=== PATIENT | female | born 1985 ===

== ENCOUNTER 2019-03-16 06:20 | Inpatient (IN) ==
[2019-03-16] MEDS ORDERED: LACTATED RINGERS 250 ML IV ONE (06:33)
[2019-03-16] MEDS ORDERED: ONDANSETRON 4 MG/2 ML VIAL IV PRN ×2 (06:33→10:48)
[2019-03-16] MEDS ORDERED: LACTATED RINGERS 1,000 ML IV ONE (06:35)
[2019-03-16] MEDS ORDERED: CITRIC ACID/SODIUM CITRATE 30 ML UDCUP PO ONE (06:35)
[2019-03-16] MEDS ORDERED: FAMOTIDINE 20 MG/2 ML VIAL IV ONE (06:35)
[2019-03-16] MEDS ORDERED: LACTATED RINGERS 1,000 ML IV SCH ×3 (07:00→11:00)
[2019-03-16 07:16] LABS: Basophils % 0.2 % (0.0-0.8); Eosinophils % 0.5 % (0.00-10.9); Hematocrit 33.4 VOL% (35.7-47.0); Hemoglobin 10.2 GM/DL (12.0-16.0); Immature Granulocytes % 2.4 %; Immature Granulocytes Absolute 0.19 #; Lymphocytes % 24.3 % (21.3-54.2); Mean Corpuscular HGB Conc 30.5 GM/DL (32-36); Mean Corpuscular Volume 85.6 FL (87-102); Mean Platelet Volume 9.1 FL (9.6-12.0); Monocytes % 6.6 % (1.7-12.7); Platelet Count 300 T/CUMM (130-400); Red Cell Distribution Width 15.2 % (9.3-17.3); White Blood Count 8.1 T/CUMM (4-12)
[2019-03-16] MEDS ORDERED: OXYTOCIN/LR 30 UNIT/1,000 ML BAG IV ONE (07:16)
[2019-03-16] MEDS ORDERED: OXYTOCIN 10 UNIT/ML VIAL IM ONE (07:16)
[2019-03-16 07:43] LABS: Alanine Aminotransferase 21 U/L (13-56); Albumin 2.4 G/DL (3.4-5.0); Alkaline Phosphatase 177 U/L (45-117); Aspartate Amino Transferase 26 U/L (0-37); Bilirubin,Total < 0.39 MG/DL (0.2-1.0); Blood Urea Nitrogen 8 MG/DL (7-18); Calcium 8.2 MG/DL (8.5-10.1); Glucose 109 MG/DL (74-106); Osmolality,Calculated 277.4 MOS/KG (273-304); Total Protein 6.8 G/DL (6.4-8.3)
[2019-03-16] MEDS ORDERED: ceFAZolin 3,000 MG in SYRINGE 1 EACH IV ONE (08:00)
[2019-03-16] MEDS ORDERED: METHYLERGONOVINE 0.2 MG/1 ML AMP ONE (08:39)
[2019-03-16] MEDS ORDERED: CARBOPROST TROMETHAMINE 250 MCG/ML AMP IM ONE (08:39)
[2019-03-16] MEDS ORDERED: miSOPROStol 200 MCG TABLET ONE (08:39)
[2019-03-16 10:31] LABS: Cord Arterial Blood HCO3 20.1 MMOL/L
[2019-03-16 10:34] LABS: Cord Venous Blood HCO3 20.8 MMOL/L; Cord Venous Blood PCO2 47.2 MMHG; Cord Venous Blood PO2 24.9
[2019-03-16] MEDS ORDERED: DEXTROSE 10% 250 ML BAG IV PRN (10:48)
[2019-03-16] MEDS ORDERED: ACETAMINOPHEN 325 MG TABLET PO PRN (10:48)
[2019-03-16] MEDS ORDERED: OXYTOCIN/LR 20 UNIT/1,000 ML BAG IV ONE (10:48)
[2019-03-16] MEDS ORDERED: GLUCAGON 1 MG VIAL IM PRN ×3 (10:48→23:32)
[2019-03-16] MEDS ORDERED: RHO(D) IMMUNE GLOBULIN 300 MCG SYRINGE IM ONE (11:00)
[2019-03-16] MEDS ORDERED: MORPHINE 10 MG/10 ML VIAL ONE (11:16)
[2019-03-16] MEDS ORDERED: PHENYLEPHRINE 1 MG/10 ML SYRINGE IV ONE (11:17)
[2019-03-16] MEDS ORDERED: DEXAMETHASONE 4 MG/1 ML VIAL ONE (11:18)
[2019-03-16] MEDS ORDERED: BUPIVACAINE SPINAL 0.75% 2 ML AMP SPINAL ONE (11:18)
[2019-03-16] MEDS ORDERED: BUPIVACAINE 0.5% 50 ML VIAL ONE (11:18)
[2019-03-16] MEDS ORDERED: ePHEDrine 50 MG/ML AMP ONE (11:18)
[2019-03-16] MEDS ORDERED: DEXTROSE 50% 25 GM/50 ML VIAL IV PRN ×2 (11:30→23:32)
[2019-03-16 11:39] LABS: Apearance,Urine CLEAR (Clear); Bilirubin,Urine Negative (Negative); Blood, Urine Negative (Negative); Glucose,Urine (UA) Negative (Negative); Ketones,Urine Negative (Negative); Mucus,Urine Moderate /LPF (Occasional); Nitrite,Urine Negative (Negative); Protein,Urine 30 MG/DL; RBC,Urine <1 /HPF (0-4); Squamous Epithelial Cell,Urine Occasional /HPF (0-10); Urine Color Yellow (Yellow); Urine Urobilinogen < 2.0 EU/DL (0.2-1.0); WBC,Urine <1 /HPF (0-6)
[2019-03-16] MEDS: HYDROmorphone 2 MG/1 ML VIAL IV PRN ×3 (12:05→13:44)
[2019-03-16] MEDS ORDERED: ceFAZolin 1,000 MG in SYRINGE 1 EACH IV SCH (16:00)
[2019-03-16] MEDS: ceFAZolin 1,000 MG in SYRINGE 1 EACH IV SCH (17:39)
[2019-03-16 18:51] LABS: Basophils % 0.2 % (0.0-0.8); Eosinophils % 0.3 % (0.00-10.9); Hematocrit 29.4 VOL% (35.7-47.0); Immature Granulocytes % 1.3 %; Immature Granulocytes Absolute 0.13 #; Lymphocytes # 1.7 10*3/uL (1.4-4.0); Lymphocytes % 17.4 % (21.3-54.2); Mean Corpuscular HGB Conc 30.6 GM/DL (32-36); Mean Corpuscular Volume 86.2 FL (87-102); Mean Platelet Volume 9.3 FL (9.6-12.0); Monocytes % 6.2 % (1.7-12.7); Neutrophils % 74.6 % (38.7-73.9); Platelet Count 260 T/CUMM (130-400); Red Blood Count 3.41 MC/CUMM (3.8-5.5); White Blood Count 9.7 T/CUMM (4-12)
[2019-03-16] MEDS: IBUPROFEN 800 MG TABLET PO PRN (21:10)
[2019-03-16] MEDS: DOCUSATE SODIUM 100 MG CAPSULE PO SCH (23:29)
[2019-03-16] MEDS: INSULIN REGULAR 100 UNIT/ML SUBCUT SCH (23:30)
[2019-03-17] MEDS: ceFAZolin 1,000 MG in SYRINGE 1 EACH IV SCH (02:30)
[2019-03-17 05:54] LABS: Basophils % 0.4 % (0.0-0.8); Eosinophils # 0.1 10*3/uL (0.0-0.87); Eosinophils % 0.6 % (0.00-10.9); Hematocrit 28.7 VOL% (35.7-47.0); Hemoglobin 8.8 GM/DL (12.0-16.0); Immature Granulocytes % 1.5 %; Immature Granulocytes Absolute 0.12 #; Lymphocytes # 1.7 10*3/uL (1.4-4.0); Lymphocytes % 20.5 % (21.3-54.2); Mean Corpuscular HGB Conc 30.7 GM/DL (32-36); Mean Corpuscular Volume 86.7 FL (87-102); Mean Platelet Volume 9.4 FL (9.6-12.0); Monocytes % 7.6 % (1.7-12.7); Neutrophils % 69.4 % (38.7-73.9); Platelet Count 260 T/CUMM (130-400); Red Blood Count 3.31 MC/CUMM (3.8-5.5); Red Cell Distribution Width 15.1 % (9.3-17.3); White Blood Count 8.3 T/CUMM (4-12)
[2019-03-17] MEDS ORDERED: MEPERIDINE 50 MG/1 ML VIAL IV PRN (09:07)
[2019-03-17] MEDS: IBUPROFEN 800 MG TABLET PO PRN ×2 (09:10→21:02)
[2019-03-17] MEDS: DOCUSATE SODIUM 100 MG CAPSULE PO SCH ×2 (09:36→20:43)
[2019-03-17] MEDS: MULTIVITAMIN (PRENATAL) TABLET PO SCH (09:36)
[2019-03-17] MEDS: INSULIN REGULAR 100 UNIT/ML SUBCUT SCH ×5 (10:35→20:41)
[2019-03-17] MEDS: oxyCODONE/ACETAMINOPHEN 5-325 MG TABLET PO PRN ×2 (14:57→21:02)
[2019-03-17] MEDS ORDERED: MAGNESIUM CITRATE 300 ML BOTTLE PO ONE (20:28)
[2019-03-17] MEDS: METOCLOPRAMIDE 10 MG TABLET PO SCH (20:43)
[2019-03-17] MEDS: MAGNESIUM HYDROXIDE SUSP 30 ML UDCUP PO PRN (20:43)
[2019-03-17] MEDS: SIMETHICONE CHEW 80 MG TABLET PO PRN (20:44)
[2019-03-18] MEDS: SIMETHICONE CHEW 80 MG TABLET PO PRN ×2 (04:17→20:02)
[2019-03-18] MEDS: METOCLOPRAMIDE 10 MG TABLET PO SCH ×2 (04:17→14:15)
[2019-03-18] MEDS: IBUPROFEN 800 MG TABLET PO PRN ×3 (04:17→23:50)
[2019-03-18] MEDS: oxyCODONE/ACETAMINOPHEN 5-325 MG TABLET PO PRN ×3 (05:21→20:00)
[2019-03-18] MEDS ORDERED: BISACODYL 10 MG SUPP RECTAL PRN (05:30)
[2019-03-18] MEDS: DOCUSATE SODIUM 100 MG CAPSULE PO SCH ×2 (10:09→20:02)
[2019-03-18] MEDS: MULTIVITAMIN (PRENATAL) TABLET PO SCH (10:09)
[2019-03-18] MEDS: FERROUS SULFATE 325 MG TABLET PO SCH (10:09)
[2019-03-18] MEDS: INSULIN REGULAR 100 UNIT/ML SUBCUT SCH ×4 (10:10→22:17)
[2019-03-18] MEDS: MAGNESIUM HYDROXIDE SUSP 30 ML UDCUP PO PRN (20:07)
[2019-03-19] MEDS: oxyCODONE/ACETAMINOPHEN 5-325 MG TABLET PO PRN ×2 (04:22→17:45)
[2019-03-19 07:09] VITALS: BP 137/80
[2019-03-19] MEDS: INSULIN REGULAR 100 UNIT/ML SUBCUT SCH ×2 (07:34→16:40)
[2019-03-19] MEDS: DOCUSATE SODIUM 100 MG CAPSULE PO SCH (10:15)
[2019-03-19] MEDS: FERROUS SULFATE 325 MG TABLET PO SCH (10:15)
[2019-03-19] MEDS: MULTIVITAMIN (PRENATAL) TABLET PO SCH (10:15)
[2019-03-19] MEDS ORDERED: DIPH/TET/ACEL PERT BOOSTER VACCINE 0.5 ML VIAL IM ONE (10:55)
[2019-03-19] MEDS: IBUPROFEN 800 MG TABLET PO PRN (11:45)
== END 2019-03-19 20:10 | disposition home or self-care (01) | DRG 788 ==
LOC: N.LD 06:20 → N.OB 14:41
PROVIDERS: ADMIT Obstetrics & Gynecology; ATTEND Obstetrics & Gynecology
PROC: LDCSECT (ICD-10-PCS; 2019-03-16 09:45)

== ENCOUNTER 2020-07-01 06:22 | Inpatient (IN) ==
[2020-07-01] MEDS ORDERED: ONDANSETRON 4 MG/2 ML VIAL IV PRN ×2 (07:26→09:29)
[2020-07-01] MEDS ORDERED: LACTATED RINGERS 250 ML IV ONE (07:26)
[2020-07-01] MEDS ORDERED: CITRIC ACID/SODIUM CITRATE 30 ML UDCUP PO ONE (07:33)
[2020-07-01] MEDS ORDERED: LACTATED RINGERS 1,000 ML IV ONE (07:33)
[2020-07-01] MEDS ORDERED: FAMOTIDINE 20 MG/2 ML VIAL IV ONE (07:33)
[2020-07-01] MEDS ORDERED: ceFAZolin 3,000 MG in SYRINGE 1 EACH IV ONE (07:35)
[2020-07-01] MEDS ORDERED: SODIUM CHLORIDE 0.9% 100 ML IV ONE (07:46)
[2020-07-01 08:10] LABS: Basophils % 0.2 % (0.0-0.8); Eosinophils # 0.1 10*3/uL (0.0-0.87); Eosinophils % 0.6 % (0.00-10.9); Hematocrit 35.7 VOL% (35.7-47.0); Immature Granulocytes % 1.5 %; Immature Granulocytes Absolute 0.13 #; Lymphocytes # 1.8 10*3/uL (1.4-4.0); Lymphocytes % 21.1 % (21.3-54.2); Mean Corpuscular HGB Conc 33.6 GM/DL (32-36); Mean Corpuscular Volume 89.5 FL (87-102); Mean Platelet Volume 9.2 FL (9.6-12.0); Monocytes % 6.2 % (1.7-12.7); Neutrophils % 70.4 % (38.7-73.9); Platelet Count 241 T/CUMM (130-400); Red Blood Count 3.99 MC/CUMM (3.8-5.5); Red Cell Distribution Width 14.2 % (9.3-17.3); White Blood Count 8.6 T/CUMM (4-12)
[2020-07-01] MEDS ORDERED: ONDANSETRON 4 MG/2 ML VIAL ONE (08:18)
[2020-07-01] MEDS ORDERED: DEXAMETHASONE 4 MG/1 ML VIAL ONE ×2 (08:18→09:14)
[2020-07-01] MEDS ORDERED: BUPIVACAINE SPINAL 0.75% 2 ML AMP SPINAL ONE ×2 (08:19→09:01)
[2020-07-01] MEDS ORDERED: MORPHINE 10 MG/10 ML VIAL ONE (08:19)
[2020-07-01 08:26] LABS: Bacteria,Urine Occasional /HPF (Few); Bilirubin,Urine Negative (Negative); Blood, Urine Negative (Negative); Glucose,Urine (UA) Negative (Negative); Ketones,Urine Negative (Negative); Mucus,Urine Occasional /LPF (Occasional); Nitrite,Urine Positive (Negative); Protein,Urine 30 MG/DL; RBC,Urine 1 /HPF (0-4); Squamous Epithelial Cell,Urine Few /HPF (0-10); Urine Appearance Slightly Hazy (Clear); Urine Color Yellow (Yellow); Urine Specific Gravity 1.019 (1.001-1.035); Urine Urobilinogen < 2.0 EU/DL (0.2-1.0); WBC,Urine 1 /HPF (0-6)
[2020-07-01 08:32] LABS: Alanine Aminotransferase 23 U/L (13-56); Albumin 2.5 G/DL (3.4-5.0); Alkaline Phosphatase 157 U/L (45-117); Aspartate Amino Transferase 24 U/L (0-37); Bilirubin,Total < 0.39 MG/DL (0.2-1.0); Blood Urea Nitrogen 8 MG/DL (7-18); Calcium 8.4 MG/DL (8.5-10.1); Estimated Glom Filtration Rate 139 ML/MIN; Glucose 112 MG/DL (74-106); Osmolality,Calculated 271.8 MOS/KG (273-304); Total Protein 6.5 G/DL (6.4-8.3); Uric Acid 3.6 MG/DL (2.6-6.0)
[2020-07-01] MEDS ORDERED: OXYTOCIN 10 UNIT/ML VIAL ONE (08:44)
[2020-07-01] MEDS ORDERED: PHENYLEPHRINE 1 MG/10 ML SYRINGE IV ONE ×3 (08:47→09:24)
[2020-07-01] MEDS ORDERED: fentaNYL 100 MCG/2 ML VIAL ONE (09:06)
[2020-07-01] MEDS ORDERED: OXYTOCIN/LR 30 UNIT/1,000 ML BAG IV ONE (09:25)
[2020-07-01] MEDS ORDERED: OXYTOCIN 10 UNIT/ML VIAL IM ONE (09:25)
[2020-07-01] MEDS ORDERED: BUPIVACAINE MPF 0.25% 30 ML VIAL ONE (09:27)
[2020-07-01 09:29] LABS: Cord Arterial Blood HCO3 16.5 MMOL/L
[2020-07-01] MEDS ORDERED: OXYTOCIN/LR 20 UNIT/1,000 ML BAG IV ONE (09:29)
[2020-07-01] MEDS ORDERED: SIMETHICONE CHEW 80 MG TABLET PO PRN (09:29)
[2020-07-01] MEDS ORDERED: ACETAMINOPHEN 325 MG TABLET PO PRN (09:29)
[2020-07-01] MEDS ORDERED: DEXTROSE 50% 25 GM/50 ML VIAL IV PRN ×4 (09:29→16:19)
[2020-07-01] MEDS ORDERED: RHO(D) IMMUNE GLOBULIN 300 MCG SYRINGE IM ONE (09:29)
[2020-07-01] MEDS ORDERED: MAGNESIUM HYDROXIDE SUSP 30 ML UDCUP PO PRN (09:29)
[2020-07-01] MEDS ORDERED: GLUCAGON 1 MG VIAL IM PRN ×5 (09:29→16:19)
[2020-07-01] MEDS ORDERED: LACTATED RINGERS 1,000 ML IV SCH (09:30)
[2020-07-01] MEDS ORDERED: ceFAZolin 1,000 MG in SYRINGE 1 EACH IV SCH (09:30)
[2020-07-01 09:33] LABS: Bacteria,Urine Occasional /HPF (Few); Bilirubin,Urine Negative (Negative); Blood, Urine Negative (Negative); Glucose,Urine (UA) Negative (Negative); Ketones,Urine Negative (Negative); Mucus,Urine Occasional /LPF (Occasional); Nitrite,Urine Positive (Negative); Protein,Urine Negative; RBC,Urine 1 /HPF (0-4); Squamous Epithelial Cell,Urine Occasional /HPF (0-10); Urine Appearance CLEAR (Clear); Urine Color Yellow (Yellow); Urine Specific Gravity 1.024 (1.001-1.035); Urine Urobilinogen < 2.0 EU/DL (0.2-1.0); WBC,Urine 3 /HPF (0-6)
[2020-07-01 09:33] LABS: Cord Venous Blood HCO3 18.5 MMOL/L; Cord Venous Blood PCO2 64.7 MMHG; Cord Venous Blood PO2 22.7
[2020-07-01] MEDS: diphenhydrAMINE 50 MG/1 ML VIAL IV PRN ×2 (12:55→22:00)
[2020-07-01] MEDS: INSULIN REGULAR 100 UNIT/ML SUBCUT SCH ×2 (16:15→21:34)
[2020-07-01] MEDS: ceFAZolin 2,000 MG in PREMIX 1 EACH IV SCH (17:07)
[2020-07-01 17:59] LABS: Basophils % 0.2 % (0.0-0.8); Hematocrit 35.6 VOL% (35.7-47.0); Hemoglobin 11.8 GM/DL (12.0-16.0); Immature Granulocytes % 0.9 %; Immature Granulocytes Absolute 0.11 #; Lymphocytes # 1.1 10*3/uL (1.4-4.0); Lymphocytes % 8.6 % (21.3-54.2); Mean Corpuscular HGB Conc 33.1 GM/DL (32-36); Mean Corpuscular Volume 88.8 FL (87-102); Mean Platelet Volume 9.1 FL (9.6-12.0); Monocytes % 4.1 % (1.7-12.7); Neutrophils % 86.2 % (38.7-73.9); Platelet Count 252 T/CUMM (130-400); Red Blood Count 4.01 MC/CUMM (3.8-5.5); Red Cell Distribution Width 13.8 % (9.3-17.3); White Blood Count 12.3 T/CUMM (4-12)
[2020-07-01] MEDS: DOCUSATE SODIUM 100 MG CAPSULE PO SCH (21:27)
[2020-07-02] MEDS: ceFAZolin 2,000 MG in PREMIX 1 EACH IV SCH (02:00)
[2020-07-02 06:11] LABS: Basophils % 0.3 % (0.0-0.8); Eosinophils % 0.4 % (0.00-10.9); Hematocrit 34.2 VOL% (35.7-47.0); Hemoglobin 11.2 GM/DL (12.0-16.0); Immature Granulocytes % 1.3 %; Immature Granulocytes Absolute 0.12 #; Lymphocytes # 2.1 10*3/uL (1.4-4.0); Lymphocytes % 23.5 % (21.3-54.2); Mean Corpuscular HGB Conc 32.7 GM/DL (32-36); Mean Platelet Volume 9.3 FL (9.6-12.0); Monocytes % 7.6 % (1.7-12.7); Neutrophils % 66.9 % (38.7-73.9); Platelet Count 230 T/CUMM (130-400); Red Blood Count 3.76 MC/CUMM (3.8-5.5); Red Cell Distribution Width 13.9 % (9.3-17.3)
[2020-07-02] MEDS ORDERED: METOCLOPRAMIDE 10 MG TABLET PO SCH (08:00)
[2020-07-02] MEDS: INSULIN REGULAR 100 UNIT/ML SUBCUT SCH ×4 (08:30→21:53)
[2020-07-02] MEDS: DOCUSATE SODIUM 100 MG CAPSULE PO SCH ×2 (08:52→20:16)
[2020-07-02] MEDS: MULTIVITAMIN (PRENATAL) TABLET PO SCH (08:53)
[2020-07-02] MEDS: IBUPROFEN 800 MG TABLET PO PRN ×2 (08:55→20:15)
[2020-07-03] MEDS: IBUPROFEN 800 MG TABLET PO PRN ×2 (02:05→15:02)
[2020-07-03] MEDS ORDERED: IBUPROFEN 800 MG TABLET PO PRN (07:00)
[2020-07-03 07:41] VITALS: BP 127/73
[2020-07-03] MEDS: MULTIVITAMIN (PRENATAL) TABLET PO SCH (08:53)
[2020-07-03] MEDS: DOCUSATE SODIUM 100 MG CAPSULE PO SCH (08:53)
[2020-07-03] MEDS ORDERED: INFLUENZA VIRUS VACCINE 0.5 ML SYRINGE IM ONE (10:37)
== END 2020-07-03 18:22 | disposition home or self-care (01) | DRG 540 ==
LOC: N.ADMINP 06:22 → N.LD 09:19 → N.OB 11:09
PROVIDERS: ADMIT Obstetrics & Gynecology; ATTEND Obstetrics & Gynecology
PROC: LDCSECT (ICD-10-PCS; 2020-07-01 08:30)